=== PATIENT | male | born 1985 | race African-American/Black ===

== ENCOUNTER 2017-09-16 12:48 | Emergency (ER) | payer SELFPAY ==
[2017-09-16] MEDS ORDERED: NS 1,000 ML IV ONE (13:08)
[2017-09-16] MEDS ORDERED: ONDANSETRON 4 MG/2 ML VIAL IVP ONE (13:09)
[2017-09-16 13:28] LABS: PLATELET COUNT 169 10^3/uL (150-400)
--- NOTE | 2017-09-16 13:30 | EDPHY ---
HPI/HX/ROS/PE/MDM Narrative: CHIEF COMPLAINT: Nausea, vomiting, diarrhea HPI: The patient is a 32 y/o male with a history of HIV arriving for 5 days of nausea, vomiting, diarrhea, and abdominal pain. He moved here in April and has not seen a doctor for his HIV since moving here and ran out of his HIV medication 1 month ago. His nausea, vomiting, and diarrhea began Thursday. He was able to hold liquid down on Thursday and has been going to work and school as normal, though his symptoms have persisted. He reports his diarrhea is liquid and yellow in appearance. In addition, the front of his neck is sore to the touch. He denies hematemesis, blood in his diarrhea, cough, or any other associated symptoms. He has been taking ibuprofen and Mucinex DM. REVIEW OF SYSTEMS: Aside from elements discussed in the HPI, a comprehensive 10-point review of systems was reviewed and is negative. 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 ENT:Eyes are normal to inspection. ENT inspection normal. Neck: Normal inspection. Full range of motion. Respiratory:No respiratory distress. Breath sounds normal bilaterally. Cardiovascular: Regular rate and rhythm. Strong peripheral pulses. Normal cap refill. Abdomen: Mild diffuse abdominal tenderness. There are no peritoneal signs. There are normal bowel sounds. Back: Normal to inspection. No tenderness to palpation. Skin: Normal color. No rash. Warm and dry. Extremities: Normal appearance. Full range of motion. Neuro: Oriented x3. Normal motor function. Normal sensory function. ED Course: The patient presents with 5 days of nausea, vomiting, diarrhea, and abdominal pain. He is HIV positive and ran out of his medication 1 month ago. He reports that his diarrhea is liquid yellow in appearance. He denies any hematemesis, blood in his stool, or any other associated symptoms. On exam, he has mild diffuse abdominal tenderness. Plan for CBC, basic metabolic panel, urinalysis to evaluate possible etiology of symptoms and 1 L NS fluids, and 4 mg Zofran to manage current symptoms. 2:00 PM- I spoke with Dr. Sanderson, infectious disease, who agrees to see this patient as an outpatient for HIV treatment. GI pathogen analysis and abdominal CT ordered for further evaluation of etiology of symptoms. 3:20 PM- On CT, the patient's appendix is normal and there are signs of enteritis per [place]. I feel he is safe to return home. He agrees to this course of action. MDM: This patient presents with diffuse abdominal pain and diarrhea. His abdomen is benign and his CTAP is consistent with enteritis, without evidence of surgical process. He is hemodynamically stable and able to tolerate PO. I think he is safe for further workup as an outpatient. I have contacted [facility] to arrange for management of HIV and restarting anti-retrovirals. The patient is comfortable with this plan. Note: Patient's stool sample positive for Cryptosporidium which I am reviewing on 09/17 at 12:30pm. I contacted Dr. Sanderson from [facility] and she was already aware of this finding and will ensure patient is taken care of. - Data Points Imaging Results: Imaging Impressions Abdomen CT 09/16/17 13:56 Impression: 1. Enterocolic dysmotile syndrome. 2. Normal appearance of the appendix. 3. Mesenteric lymphadenitis/lymphadenopathy, which could be virally-mediated, or reflect a lymphoproliferative disorder. Consider follow-up CT reevaluation in 6-8 weeks. Findings were discussed with Edmundo Huertas MD at 15:16, on 09/16/2017. Laboratory Results: Laboratory Results 09/16/17 13:17 09/16/17 13:17 09/16/17 09/16/17 09/16/17 13:17 13:17 13:03 WBC 6.95 10^3/uL 10^3/uL (3.80-9.50) RBC 4.64 10^6/uL 10^6/uL (4.40-6.38) Hgb 15.9 g/dL g/dL (13.7-17.5) Hct 44.7 % % (40.0-51.0) MCV 96.3 fL fL (81.5-99.8) MCH 34.3 pg H pg (27.9-34.1) MCHC 35.6 g/dL g/dL (32.4-36.7) RDW 10.9 % L % (11.5-15.2) Plt Count 169 10^3/uL 10^3/uL (150-400) MPV 9.6 fL fL (8.7-11.7) Neut % (Auto) 59.4 % % (39.3-74.2) Lymph % (Auto) 24.6 % % (15.0-45.0) Bradley % (Auto) 14.5 % H % (4.5-13.0) Eos % (Auto) 0.6 % % (0.6-7.6) Baso % (Auto) 0.3 % % (0.3-1.7) Nucleat RBC Rel Count 0.0 % % (0.0-0.2) Absolute Neuts (auto) 4.13 10^3/uL 10^3/uL (1.70-6.50) Absolute Lymphs (auto) 1.71 10^3/uL 10^3/uL (1.00-3.00) Absolute Monos (auto) 1.01 10^3/uL H 10^3/uL (0.30-0.80) Absolute Eos (auto) 0.04 10^3/uL 10^3/uL (0.03-0.40) Absolute Basos (auto) 0.02 10^3/uL 10^3/uL (0.02-0.10) Absolute Nucleated RBC 0.00 10^3/uL 10^3/uL (0-0.01) Immature Gran % 0.6 % % (0.0-1.1) Immature Gran # 0.04 10^3/uL 10^3/uL (0.00-0.10) Sodium 135 mEq/L mEq/L (135-145) Potassium 3.8 mEq/L mEq/L (3.3-5.0) Chloride 97 mEq/L mEq/L (97-110) Carbon Dioxide 24 mEq/l mEq/l (22-31) Anion Gap 14 mEq/L mEq/L (8-16) BUN 13 mg/dL mg/dL (7-23) Creatinine 1.2 mg/dL mg/dL (0.7-1.3) Estimated GFR > 60 Glucose 110 mg/dL H mg/dL (70-100) Calcium 8.8 mg/dL mg/dL (8.5-10.4) Urine Color YELLOW Urine Appearance CLEAR Urine pH 5.0 (5.0-7.5) Ur Specific [place] 1.024 (1.002-1.030) Urine Protein NEGATIVE (NEGATIVE) Urine Ketones 1+ H (NEGATIVE) Urine Blood NEGATIVE (NEGATIVE) Urine Nitrate NEGATIVE (NEGATIVE) Urine Bilirubin NEGATIVE (NEGATIVE) Urine Urobilinogen NEGATIVE EU EU (0.2-1.0) Ur Leukocyte Esterase NEGATIVE (NEGATIVE) Urine Glucose NEGATIVE (NEGATIVE) Medications Given: Discontinued Medications Sodium Chloride (Ns) 1,000 mls @ 0 mls/hr IV ONCE ONE PRN Reason: Wide Open Stop: 09/16/17 13:09 Last Admin: 09/16/17 13:18 Dose: 1,000 mls Ondansetron HCl (Zofran) 4 mg IVP EDNOW ONE Stop: 09/16/17 13:10 Last Admin: 09/16/17 13:19 Dose: 4 mg General Time Seen by Provider: 09/16/17 13:04 Initial Vital Signs: Initial Vital Signs Temperature (C) 36.9 C 09/16/17 12:55 Heart Rate 97 09/16/17 12:55 Respiratory Rate 18 09/16/17 12:55 Blood Pressure 145/81 H 09/16/17 12:55 O2 Sat (%) 96 09/16/17 12:55 O2 Delivery Mode Room Air Allergies/Adverse Reactions: No Known Allergies Allergy (Unverified 09/16/17 12:53) Home Medications: Medication Instructions Recorded [facility] 09/16/17 Departure - Departure Disposition: Home, Routine, Self-Care Clinical Impression: Enteritis Condition: Good Instructions: Enteritis (ED) Additional Instructions: 1. Drink plenty of fluids and get rest. Add food in as tolerated. 2. You have been referred to Dr. Sanderson, infectious disease, for your HIV care. Call their office to schedule an appointment. 3. Return to the emergency department for blood in your vomit or stool, uncontrollable pain, or any other worsening of condition. 4. We have sent a stool sample to the lab and will call you with results if you need medication. Referrals: Latrice Sanderson MD [Medical Doctor] - As per Instructions Report Scribed for: Edmundo Huertas Report Scribed by: Tiffany Cloud Date of Report: 09/16/17 Time of Report: 13:31 Physician Review and Approval Statement: Portions of this note were transcribed by an ED scribe. I personally performed the history, physical exam, and medical decision making; and confirm the accuracy of the information in the transcribed note.
[2017-09-16] MEDS ORDERED: IOPAMIDOL (ISOVUE-300) 100 ML BTL ONE (14:25)
[2017-09-16 16:11] VITALS: BP 152/80
== END 2017-09-16 16:11 | disposition home or self-care (01) ==
DX: K52.9 Noninfective gastroenteritis and colitis, unspecified (principal); E86.9 Volume depletion, unspecified
CPT/HCPCS: 96374; J2405; Q9967